=== PATIENT | female | born 1990 | race Caucasian/White ===

== ENCOUNTER 2020-05-31 17:34 | Inpatient (IN) | payer BC ==
[~2020-05-31] VITALS: Ht 182.9 cm; Wt 79.0 kg
[2020-05-31 17:41] VITALS: BP 111/62
[2020-05-31] MEDS ORDERED: FENTANYL PF 100 MCG/2ML IV PRN (19:30)
[2020-05-31] MEDS ORDERED: TERBUTALINE 1 MG/ML, 1ML IVPush PRN (19:30)
[2020-05-31] MEDS ORDERED: ONDANSETRON 2MG/ML, 2ML IVPush PRN (19:30)
[2020-05-31] MEDS ORDERED: OXYTOCIN 30U/ 0.9% NaCL 500ML 500 ML IV ONE (19:30)
[2020-05-31] MEDS ORDERED: SODIUM CITRATE/CITRIC ACID 30 ML UDC PO PRN (19:30)
[2020-05-31] MEDS ORDERED: FENTANYL PF 100 MCG/2ML IVPush PRN (19:30)
[2020-05-31] MEDS ORDERED: METOCLOPRAMIDE 5 MG/ML, 2ML IVPush PRN (19:30)
[2020-05-31] MEDS ORDERED: OXYTOCIN 30U/ 0.9% NaCL 500ML 500 ML IV PRN (19:30)
[2020-05-31] MEDS ORDERED: TERBUTALINE 1 MG/ML, 1ML SQ PRN (19:30)
[2020-05-31] MEDS: D5%-LACTATED RINGERS 1,000 ML IV SCH (19:30)
[2020-05-31] MEDS ORDERED: LIDOCAINE 1%, 20ML ONE (19:31)
[2020-05-31] MEDS ORDERED: NEWBORN KIT ONE (19:31)
[2020-05-31] MEDS ORDERED: OXYTOCIN 30U/ 0.9% NaCL 500ML 500 ML ONE (19:32)
[2020-05-31] MEDS ORDERED: MISOPROSTOL 200 MCG TABLET ONE (19:32)
[2020-05-31 19:53] LABS: BASOPHILS % (AUTO) 1 % (0-1); EOSINOPHILS % (AUTO) 1 % (1-7); LYMPHOCYTES % (AUTO) 23 % (22-44); MEAN CORPUSCULAR HEMOGLOBIN 30.3 pg (27.0-34.8); MEAN PLATELET VOLUME 8.1 fL (7.4-10.4); MONOCYTES % (AUTO) 7 % (2-9); NEUTROPHILS % (AUTO) 68 % (42-75); PLATELET COUNT 250 x10^3/uL (130-400); RED BLOOD COUNT 3.82 x10^6/uL (3.82-5.3); RED CELL DISTRIBUTION WIDTH 12.6 % (9.6-15.2)
[2020-05-31 19:55] LABS: MD NO
[2020-05-31 20:45] VITALS: BP 127/74
[2020-05-31] MEDS: LACTATED RINGERS 1,000 ML IV SCH (22:55)
[2020-06-01] MEDS: LACTATED RINGERS 1,000 ML IV SCH (03:30)
[2020-06-01] MEDS: D5%-LACTATED RINGERS 1,000 ML IV SCH (03:30)
[2020-06-01 04:30] VITALS: BP 112/70
[2020-06-01] MEDS ORDERED: OXYTOCIN 30U/ 0.9% NaCL 500ML 500 ML IV ONE (05:00)
[2020-06-01] MEDS: OXYTOCIN 30U/ 0.9% NaCL 500ML 500 ML IV SCH ×2 (07:42→16:50)
[2020-06-01] MEDS ORDERED: CALCIUM CARBONATE 500 MG TAB.CHEW PO PRN (08:00)
[2020-06-01] MEDS ORDERED: SIMETHICONE 80 MG CHEW TAB PO PRN (08:00)
[2020-06-01] MEDS ORDERED: ONDANSETRON 2MG/ML, 2ML IV PRN (08:00)
[2020-06-01] MEDS ORDERED: BISACODYL 10 MG SUPP PR PRN (08:00)
[2020-06-01] MEDS ORDERED: HYDROcodone/APAP 5/325 TABLET PO PRN ×2 (08:00)
[2020-06-01] MEDS ORDERED: OXYTOCIN 30U/ 0.9% NaCL 500ML 500 ML IV SCH (08:00)
[2020-06-01] MEDS ORDERED: MISOPROSTOL 200 MCG TABLET PR PRN (08:00)
[2020-06-01] MEDS ORDERED: ACETAMINOPHEN 325 MG TABLET PO PRN ×2 (08:00)
[2020-06-01 09:03] VITALS: BP 115/76
[2020-06-01] MEDS: DOCUSATE 100 MG CAPSULE PO PRN ×2 (09:09→15:32)
[2020-06-01] MEDS: PRENATAL VIT/IRON/FA 1 EACH TABLET PO SCH ×2 (09:09→15:32)
[2020-06-01 09:35] LABS: BASOPHILS % (AUTO) 0 % (0-1); EOSINOPHILS % (AUTO) 0 % (1-7); LYMPHOCYTES % (AUTO) 15 % (22-44); MEAN CORPUSCULAR HEMOGLOBIN 30.4 pg (27.0-34.8); MEAN CORPUSCULAR HGB CONC 34.1 g/dL (32.4-35.8); MEAN PLATELET VOLUME 8.3 fL (7.4-10.4); MONOCYTES % (AUTO) 6 % (2-9); NEUTROPHILS % (AUTO) 79 % (42-75); PLATELET COUNT 231 x10^3/uL (130-400); RED BLOOD COUNT 3.43 x10^6/uL (3.82-5.3); RED CELL DISTRIBUTION WIDTH 12.7 % (9.6-15.2)
[2020-06-01 09:36] LABS: MD NO
[2020-06-01 11:53] VITALS: BP 107/64
[2020-06-01] MEDS: IBUPROFEN 600 MG TABLET PO PRN (15:32)
[2020-06-01 15:37] VITALS: BP 113/72
[2020-06-01 20:00] VITALS: BP 114/66
[2020-06-02 01:00] VITALS: BP 98/60
[2020-06-02] MEDS: OXYTOCIN 30U/ 0.9% NaCL 500ML 500 ML IV SCH (04:00)
[2020-06-02] MEDS ORDERED: MEASLES,MUMPS&RUBELLA VACC/PF 0.5 ML SQ-VACC ONE (05:30)
[2020-06-02 07:47] VITALS: BP 95/61
[2020-06-02] MEDS ORDERED: FERR324T5 PO (08:50)
[2020-06-02] MEDS ORDERED: DOCU-131 PO (08:50)
[2020-06-02] MEDS ORDERED: IBUP-1223 PO (08:50)
[2020-06-02] MEDS: PRENATAL VIT/IRON/FA 1 EACH TABLET PO SCH (09:00)
[2020-06-02] MEDS: IBUPROFEN 600 MG TABLET PO PRN (10:05)
== END 2020-06-02 11:30 | disposition home or self-care (01) | DRG 806 ==
LOC: LDOP 17:34 → LDIP 19:08 → 2NW 06-01 04:16
PROVIDERS: ADMIT Student in an Organized Health Care Education/Training Program; ATTEND Student in an Organized Health Care Education/Training Program
PROC: 10E0XZZ Delivery of Products of Conception, External Approach (ICD-10-PCS; principal; 2020-06-01)
PROC: 0KQM0ZZ Repair Perineum Muscle, Open Approach (ICD-10-PCS; 2020-06-01)
DX: O32.6XX0 Maternal care for compound presentation, not applicable or unspecified (principal); D62 Acute posthemorrhagic anemia; Z37.0 Single live birth; Z3A.39 39 weeks gestation of pregnancy; O70.1 Second degree perineal laceration during delivery; O99.02 Anemia complicating childbirth; Z20.828 Contact with and (suspected) exposure to other viral communicable diseases
CPT/HCPCS: 36415; 85025; 86592; 86850; 86900; 87635; G0378; J2590; J7120